=== PATIENT | female | born 1995 | race Caucasian/White ===

== ENCOUNTER 2019-02-11 08:01 | Emergency (ER) | payer BC ==
[~2019-02-11 08:01] MED LIST: OMNICEF 300MG300 MG PO; SPRINTEC 35 MCG1 TAB PO; ZOLOFT 50MG50 MG PO
[2019-02-11 08:11] VITALS: BP 119/59; PULSE 75; TEMP 98.8
== END 2019-02-11 08:18 | disposition home or self-care (01) ==
LOC: COL.ER 08:01
DX: S61.412D Laceration without foreign body of left hand, subsequent encounter (principal); X58.XXXD Exposure to other specified factors, subsequent encounter